=== PATIENT | female | born 2000 | race Caucasian/White ===

== ENCOUNTER 2021-07-21 10:53 | Emergency (ER) | payer OTHER, SELFPAY ==
[2021-07-21 11:00] VITALS: BP 113/63; PULSE 89; RESP 18; TEMP 37.1; O2SAT 100
--- NOTE | 2021-07-21 11:07 | ED.FEMALEGU ---
HPI - Female Genitourinary General Chief complaint: Urogenital-Female Stated complaint: burning urination Time Seen by Provider: 07/21/21 11:09 Source: patient and RN notes reviewed Mode of arrival: ambulatory Limitations: no limitations History of Present Illness HPI Narrative: 20-year-old female presents concern for burning with urination. Reports 2 days ago she had vaginal itching after using a new soap. She now reports she has vaginal burning with urination. She denies frequency, urgency, flank pain, abdominal pain, fever, bodies, chills, sweats. She denies abnormal vaginal discharge. She reports several years ago she contracted several STDs, she said she had a positive herpes test but her subsequent herpes test was negative. She is concerned about herpes. MD elicited complaint: dysuria and genital itching Related Data Home Medications Medication Instructions Recorded Confirmed dicyclomine 20 mg PO DAILY 07/21/21 07/21/21 Allergies Allergy/AdvReac Type Severity Reaction Status Date / Time No Known Allergies Allergy Unverified 05/04/16 19:11 Review of Systems Review of Systems: CONSTITUTIONAL: Denies malaise, chills, sweats, or fever. CARDIOVASCULAR: Denies chest pain, palpitations, or edema. RESPIRATORY: Denies cough or dyspnea. GASTROINTESTINAL: Denies abdominal pain, nausea, vomiting, diarrhea GENITOURINARY: Reports dysuria. Denies frequency, urgency, suprapubic pressure. Denies flank pain or hematuria. SKIN: Denies rash or itching. MUSCULOSKELETAL: Denies back pain or myalgia. All systems reviewed & are unremarkable except as noted in HPI and below PMFSH Comments At time of signature, agree with nursing past medical, surgical, social and family history. There is no relevant family history pertinent to the presenting complaint Exam Narrative: GENERAL: Well-appearing, well-nourished, and in no acute distress. HEAD: Normocephalic. EYES: PERRLA, conjunctivae clear. NECK: Supple. No lymphadenopathy CHEST: Clear to auscultation. No respiratory distress. HEART: Regular rate and rhythm. ABDOMEN: Soft, nontender upon palpation, nondistended, normal active bowel sounds, no palpable or pulsatile masses, no guarding. No CVA tenderness SKIN: Warm, dry, no rash. NEURO: Alert and oriented x3. PSYCH: Normal mood and affect : External Female Exam: normal appearance of the urethra and erythema Speculum Exam - Vagina: normal appearance of the vagina and normal vaginal discharge Course Course Emergency Course: Patient is aware of diagnosis, understands and agrees to treatment plan. Anticipatory guidance given. Patient agrees to follow-up as directed and is aware of reasons to seek care at the emergency department. Portions of this record may have been created with voice recognition software Level of Care: Express Care Visit Vital Signs Vital signs: Vital Signs Temperature 98.8 F 07/21/21 11:00 Pulse Rate 89 07/21/21 11:00 Respiratory Rate 18 07/21/21 11:00 Blood Pressure 113/63 07/21/21 11:00 Pulse Oximetry 100 07/21/21 11:00 Temperature 98.8 F 07/21/21 11:00 Pulse Rate 89 07/21/21 11:00 Respiratory Rate 18 07/21/21 11:00 Blood Pressure 113/63 07/21/21 11:00 Pulse Oximetry 100 07/21/21 11:00 Reviewed. MDM - Female Genitourinary MDM Narrative Medical decision making narrative: Exam findings and UA show no acute concerns or changes; patient is non-toxic appearing and is in no distress. Patient is appropriate for outpatient treatment and follow-up. Differential Diagnosis Differential diagnosis: Likely urinary tract infection and cystitis Critical Care Time Critical Care Time Critical Care Time: No Discharge Plan Discharge Clinical Impression: Vaginal itching Patient Disposition: Home, Self-Care Condition: Stable Instructions: Yeast Infection (ED) Additional Instructions: 1) Please follow-up with your primary care doctor if you have any new concerns
== END 2021-07-21 11:25 | disposition home or self-care (01) ==
PROVIDERS: Emergency Provider Nurse Practitioner
DX: L29.2 Pruritus vulvae (principal)
CPT/HCPCS: 81003; 99203; G0463